=== PATIENT | male | born 1995 | race American Indian/Alaskan Native ===

== ENCOUNTER 2018-11-20 16:43 | Emergency (ER) | payer OTHER ==
[~2018-11-20] VITALS: Ht 180.3 cm; Wt 99.8 kg
[2018-11-20] MEDS ORDERED: KEFLEX500 MG PO (17:43)
== END 2018-11-20 17:51 | disposition home or self-care (01) ==
LOC: ED 16:43
DX: S01.511A Laceration without foreign body of lip, initial encounter (principal); Z79.899 Other long term (current) drug therapy; W51.XXXA Accidental striking against or bumped into by another person, initial encounter; Y93.67 Activity, basketball
CPT/HCPCS: 99282